=== PATIENT | female | born 1980 | race Native Hawaiian/Other Pacific Islander ===

== ENCOUNTER → 2016-09-12 | Outpatient (CLI) | payer BC ==
--- NOTE | 2016-09-12 15:39 | XR ---
EXAMINATION TYPE: XR cervical spine comp DATE OF EXAM: 09/12/2016 2:40 PM COMPARISON: NONE HISTORY: Cervicalgia TECHNIQUE: 5 view cervical spine FINDINGS: No acute fracture evident. Alignment is normal. Prevertebral space is normal. Posterior spi nal lamellar line is intact. Disc height and vertebral body heights are preserved. Foramen are patent . Prominent C7 transverse processes are present. IMPRESSION: 1. No acute osseous abnormality cervical spine
== END | disposition home or self-care (01) ==
LOC: RADXRMAIN 14:20
PROVIDERS: ATTEND Family Medicine
DX: M54.2 Cervicalgia (principal)
CPT/HCPCS: 72050

== ENCOUNTER → 2016-09-14 | Outpatient (CLI) | payer BC ==
[2016-09-14 11:10] LABS: Prolactin 13.4 ng/mL (3.0-18.6)
== END | disposition home or self-care (01) ==
LOC: LABWHC1 07:54
PROVIDERS: ATTEND Internal Medicine Endocrinology, Diabetes & Metabolism
DX: D35.2 Benign neoplasm of pituitary gland (principal); E03.9 Hypothyroidism, unspecified
CPT/HCPCS: 36415; 84146; 84443

== ENCOUNTER → 2017-08-26 | Outpatient (CLI) | payer BC ==
--- NOTE | 2017-08-26 13:49 | US ---
EXAMINATION TYPE: US pelvis complete transvag DATE OF EXAM: 08/26/2017 COMPARISON: 06/08/2016 CLINICAL HISTORY: 36-year-old female Pelvic R10.2, N92.1 Frequent menstruation. TECHNIQUE: Transvaginal (TV) and Transabdominal (TA) Transvaginal scanning was medically necessary to visualize the left ovary. Date of LMP: 08/02/17 Findings: Uterus: Anteverted measuring 7.4 x 3.7 x 4.8 cm. Numerous cervical nabothian cysts are present. Endometrial Stripe: 1.1 cm, slightly heterogeneous. Right Ovary: 2.6 x 1.4 x 2.9 cm with follicular change. Left Ovary: not visualized on either transabdominal or transvaginal scanning due to adjacent bowel ga s. No evident adnexal abnormality or cul-de-sac free fluid. IMPRESSION: 1. Numerous cervical nabothian cysts incidentally noted. 2. Endometrial stripe measuring 1.1 cm thick should correspond to the secretory phase of the menstrua l cycle. 3. Left ovary could not be visualized by either transabdominal or transvaginal scanning.
== END | disposition home or self-care (01) ==
LOC: RADUSWWP 12:20
PROVIDERS: ATTEND Family Medicine
DX: N88.8 Other specified noninflammatory disorders of cervix uteri (principal); N92.1 Excessive and frequent menstruation with irregular cycle
CPT/HCPCS: 76830; 76856

== ENCOUNTER 2018-07-28 10:12 | Day surgery (SDC) | payer BC ==
[2018-07-25 08:24] VITALS: BMI 28.3
[~2018-07-28 10:12] MED LIST: LACTATED RINGERS 1,000 ML IV SCH
[2018-07-28 10:38] VITALS: TEMP 97.6
[2018-07-28 10:43] LABS: Glucose,Whole Blood 81 mg/dL (75-99)
[2018-07-28] MEDS ORDERED: LIDOCAINE 1% INJ 10MG/ML (20 ML MDV) ONE (12:06)
[2018-07-28] MEDS ORDERED: PROPOFOL 10 MG/ML 20 ML VIAL IV ONE (12:06)
--- NOTE | 2018-07-28 12:30 | P.PCN ---
Date of Procedure: 07/28/18 Procedure(s) Performed: Procedure: Esophagogastroduodenoscopy and biopsy. Preoperative diagnosis: Epigastric pain and dysphagia. Postoperative diagnosis: 1. Small hiatal hernia with no obvious esophagitis or complicated reflux disease. 2. Mild antral gastritis. 3. Biopsies obtained from the duodenum, antrum and esophagus were Preparation and sedation: Was provided by anesthesia. Brief clinical history: The patient is a 37-year-old female who was evaluated last month in the office for complaints of sharp epigastric pain and trouble swallowing. Apparently, this has come and gone over the years. She had hiatal hernia surgery in the past and did feel better for couple years but now her pains has returned. She had the gallbladder removed as well as the past. Her last EGD was around 4 years ago. Procedure: With the patient on her left lateral decubitus position and after informed consent and adequate sedation, I passed the Olympus-GIF H1 90 video upper endoscope through the cricopharyngeus down the esophagus. GE junction was around 31 cm from the incisors and there was a small sliding hiatal hernia with no obvious esophagitis or complicated reflux disease. The endoscope was then passed into the stomach which was insufflated with air and inspected in detail including the retroflex view in the cardia. There was evidence of prior fundoplication. There was also mottling and erythema in the antrum but no ulcers. Pyloric channel did not show any ulcers. Duodenal bulb, post bulbar area and descending duodenum appeared within normal limits. I obtained biopsies from the duodenum, antrum and esophagus then the endoscope was withdrawn. The patient tolerated the procedure well. Plan: The patient was reassured. Will await biopsy results and make further plans based on her course and biopsy results. She will follow-up with you as planned and I will be happy to see in the office if her symptoms persist or recur.
[2018-07-28 12:42] VITALS: BP 121/69; PULSE 69; RESP 16
== END 2018-07-28 13:15 | disposition home or self-care (01) ==
LOC: ORWHC2ENDO 10:12
DX: K29.50 Unspecified chronic gastritis without bleeding (principal); K21.9 Gastro-esophageal reflux disease without esophagitis; K44.9 Diaphragmatic hernia without obstruction or gangrene; R13.10 Dysphagia, unspecified; E07.9 Disorder of thyroid, unspecified; Z79.84 Long term (current) use of oral hypoglycemic drugs; Z79.890 Hormone replacement therapy; Z79.899 Other long term (current) drug therapy; Z91.041 Radiographic dye allergy status
CPT/HCPCS: 88305; 43239; J2001; J2704

== ENCOUNTER → 2018-10-08 | Outpatient (CLI) | payer BC ==
--- NOTE | 2018-10-08 11:23 | US ---
EXAMINATION TYPE: Transabdominal DATE OF EXAM: 10/08/2018 10:56 AM COMPARISON: NONE CLINICAL HISTORY: R10.2 PELVIC AND PERINEAL PAIN. Early OB, fertility issues, A1 EXAM PERFORMED: OBTA, OBTV EXAM MEASUREMENTS: GESTATIONAL AGE / DATING Physician Established: Not yet established Dates by LMP: LMP unknown Dates by First Scan: No previous this is first scan Dates by Current Scan for: No IUP seen at this time MATERNAL ANATOMY Uterus: 9.3 x 6.3 x 5.4cm Right Ovary: 2.3 x 1.9 x 1.7cm Left Ovary: 3.8 x 3.5 x 3.1cm Post CDS / Adnexa: wnl Presence of free fluid: no Presence of corpus luteal cyst: possible on the left = 3.1c, Presence of subchorionic bleed: no GESTATION / SURVEY IUP: No IUP seen at this time Endometrium = 2.7cm , thickened with an irregular, mixed lesion, noted centrally, measuring 1.1cm, u nsure if abnormal gestational sac versus other etiology Date of LMP: unknown Beta HcG (if available): not available IMPRESSION: Endometrium is markedly thickened at 2.7 cm appears somewhat irregular with a mixed lesion noted cent rally measuring 1.1 cm. This is of uncertain etiology. Missed , abnormal gestational sac, or normal too early to detect in the differential diagnosis. Ectopic not excluded. R ecommend follow-up serial beta hCG and pelvic ultrasound as clinically warranted.
== END | disposition home or self-care (01) ==
LOC: RADUSWWP 10:19
PROVIDERS: ATTEND Family Medicine
DX: R93.89 Abnormal findings on diagnostic imaging of other specified body structures (principal); R10.2 Pelvic and perineal pain
CPT/HCPCS: 76801; 76817

== ENCOUNTER → 2018-10-15 | Outpatient (CLI) | payer BC ==
--- NOTE | 2018-10-15 14:14 | US ---
EXAMINATION TYPE: Transabdominal DATE OF EXAM: 10/15/2018 1:34 PM COMPARISON: US 10/08/18. CLINICAL HISTORY: Z33.1 state, incidental,R10.2 PELVIC PAIN. Pelvic pain x 1 month. Hx ovar felecia cyst. Patient unsure of LMP. EXAM PERFORMED: Transvaginal (TV) and Transabdominal (TA) EXAM MEASUREMENTS: GESTATIONAL AGE / DATING Physician Established: Not yet established. Dates by LMP: Pt unsure of LMP Dates by First Scan: No IUP seen 10/08/18. MATERNAL ANATOMY Uterus: 9.8 x 7.2 x 5.9 cm. Hypoechoic area seen: 0.6 x 0.7 x 0.5 cm. Right Ovary: 3.4 x 1.8 x 1.4 cm Left Ovary: 3.9 x 2.3 x 2.9 cm Post CDS / Adnexa: wnl Presence of free fluid: No Presence of corpus luteal cyst: left ovary area of mixed echogenicity and peripheral vascularity seen : 3.2 x 1.7 x 2.6 cm. Presence of subchorionic bleed: No evidence. GESTATION / SURVEY CRL: Not seen. MSD: 0.94 cm. Too early to calculate dates. Yolk Sac (normal less than 6mm): 0.19 IUP: No pole seen at this time Date of LMP: Unknown IMPRESSION: Small intramural endometrial fluid collection containing a yolk sac that may represent ea rly intrauterine or anembryonic /blighted ovum. Follow-up pelvic ultrasound in 7-1 0 days is recommended as well as repeat short-term serial serum beta hCG.
== END | disposition home or self-care (01) ==
LOC: RADUSWWP 12:47
PROVIDERS: ATTEND Family Medicine
DX: O99.89 Other specified diseases and conditions complicating pregnancy, childbirth and the puerperium (principal); R10.2 Pelvic and perineal pain; Z3A.00 Weeks of gestation of pregnancy not specified
CPT/HCPCS: 76801; 76817

== ENCOUNTER → 2018-10-28 | Outpatient (CLI) | payer BC ==
--- NOTE | 2018-10-28 14:22 | US ---
EXAMINATION TYPE: Transabdominal DATE OF EXAM: 10/28/2018 2:00 PM COMPARISON: US 2018 CLINICAL HISTORY: Z33.1 stated, incidental. Pelvic pain EXAM PERFORMED: Transabdominal (TA) EXAM MEASUREMENTS: GESTATIONAL AGE / DATING Physician Established: Not established yet Dates by LMP: Patient unsure Dates by First Scan: No IUP seen on 1st scan Dates by Current Scan for: (7 weeks/1 days) EDC: 06/15/2019 MATERNAL ANATOMY Uterus: 10.4 x 6.5 x 8.0cm, anteverted Right Ovary: 2.8 x 1.4 x 1.8cm Left Ovary: 4.0 x 2.1 x 2.8cm Post CDS / Adnexa: wnl Presence of free fluid: no Presence of corpus luteal cyst: left ovary: 2.4 x 1.6 x 1.9cm Presence of subchorionic bleed: no GESTATION / SURVEY CRL: 10.3cm (7 weeks/1 days) Yolk Sac (normal less than 6mm): 4.3mm Heart Rate: 149 bpm Rhythm: Normal IUP: Viable IUP Date of LMP: Patient unsure Beta HcG (if available): Not available at time of exam IMPRESSION: Viable single IUP measuring 7 weeks 1 day with a heart rate of 149bpm and estimated delivery date of 06/15/2019.
== END | disposition home or self-care (01) ==
LOC: RADUSWWP 13:35
PROVIDERS: ATTEND Family Medicine
DX: Z34.91 Encounter for supervision of normal pregnancy, unspecified, first trimester (principal); Z3A.01 Less than 8 weeks gestation of pregnancy
CPT/HCPCS: 76801

== ENCOUNTER 2019-11-01 18:57 | Emergency (ER) | payer BC, OTHER ==
[2019-11-01] MEDS ORDERED: MORPHINE SULFATE 4 MG/ML SYRINGE IVP STA (19:33)
--- NOTE | 2019-11-01 19:38 | ED ---
General Adult HPI - General Source: patient, family, RN notes reviewed Mode of arrival: ambulatory Limitations: language barrier <Josesito Anna - Last Filed: 11/02/19 00:26> <Susannah Cleaning - Last Filed: 11/02/19 03:16> - General Chief complaint: Abdominal Pain Stated complaint: Fever, headache, nausea Time Seen by Provider: 11/01/19 19:07 - History of Present Illness Initial comments: 39-year-old female with a past medical history of GERD, migraines, thyroid disorder presents to the emergency department for several complaints. Patient has her translating for her. Patient states about a week ago has started to have right flank pain radiating to the right abdomen with associated dysuria. States that she thinks she could've a urinary tract infection. Patient has had these before. Patient developed a fever last night according to the and she had a 102 fever today. She has not received any Tylenol or Motrin today. Patient is also complaining of headache associated with this. She denies cough or congestion. Denies sore throat. Patient has no other complaints at this time including shortness of breath, chest pain, headache, or visual changes. (Josesito Anna) - Related Data Home Medications Medication Instructions Recorded Confirmed Levothyroxine Sodium [Synthroid] 75 mcg PO DAILY 07/10/18 07/25/18 Topiramate [Topiramate ER] 50 mg PO DAILY 07/10/18 07/25/18 metFORMIN HCL [Glucophage] 500 mg PO DAILY 07/10/18 07/25/18 Previous Rx's Medication Instructions Recorded Nitrofurantoin Monohyd/M-Cryst 100 mg PO Q12HR #14 cap 10/04/18 [Macrobid] Sulfamethox-Tmp 800-160Mg [Bactrim 1 tab PO Q12HR #28 tab 11/02/19 DS 800-160 mg] Allergies Allergy/AdvReac Type Severity Reaction Status Date / Time gadobenate dimeglumine Allergy Rash/Hives Verified 11/01/19 18:58 [From Multihance] Review of Systems ROS Other: All systems not noted in ROS Statement are negative. <Josesito Anna - Last Filed: 11/02/19 00:26> ROS Other: All systems not noted in ROS Statement are negative. <Susannah Cleaning Angelica - Last Filed: 11/02/19 03:16> ROS Statement: Those systems with pertinent positive or pertinent negative responses have been documented in the HPI. Past Medical History Past Medical History: GERD/Reflux, Thyroid Disorder Additional Past Medical History / Comment(s): takes metformin for PCOS, not diabetes, hx of migraines History of Any Multi-Drug Resistant Organisms: ESBL Date of last positivie culture/infection: 10/14/17 MDRO Source:: ESBL URINE Past Surgical History: Cholecystectomy, Hernia Repair Past Anesthesia/Blood Transfusion Reactions: Postoperative Nausea & Vomiting (PONV) Past Psychological History: No Psychological Hx Reported Smoking Status: Never smoker Past Alcohol Use History: None Reported Past Drug Use History: None Reported - Past Family History Mother Family Medical History: No Reported History <Josesito Anna - Last Filed: 11/02/19 00:26> General Exam Limitations: language barrier General appearance: alert, in no apparent distress Head exam: Present: atraumatic, normocephalic, normal inspection Eye exam: Present: normal appearance, PERRL, EOMI. Absent: scleral icterus, conjunctival injection, periorbital swelling ENT exam: Present: normal exam, mucous membranes moist Neck exam: Present: normal inspection, full ROM. Absent: tenderness, me ningismus, lymphadenopathy Respiratory exam: Present: normal lung sounds bilaterally. Absent: respiratory distress, wheezes, rales, rhonchi, stridor Cardiovascular Exam: Present: regular rate, normal rhythm, normal heart sounds. Absent: systolic murmur, diastolic murmur, rubs, gallop, clicks GI/Abdominal exam: Present: soft, tenderness (RLQ tenderness), normal bowel sounds. Absent: distended, guarding, rebound, rigid Back exam: Present: CVA tenderness (R). Absent: CVA tenderness (L) Neurological exam: Present: alert <Josesito Anna P - Last Filed: 11/02/19 00:26> Course <Josesito Anna - Last Filed: 11/02/19 00:26> Vital Signs 11/01/19 11/01/19 11/01/19 19:00 20:37 22:11 Temperature 98.4 F 98.8 F 100.4 F H Pulse Rate 99 88 96 Respiratory 18 20 19 Rate Blood Pressure 115/71 102/69 106/80 O2 Sat by Pulse 98 100 96 Oximetry 11/01/19 11/02/19 23:23 00:35 Temperature 98.6 F 98.1 F Pulse Rate 86 71 Respiratory 16 18 Rate Blood Pressure 103/72 103/74 O2 Sat by Pulse 97 96 Oximetry - Reevaluation(s) Reevaluation #1: 11/01/19 22:17 Patient was reevaluated after CAT scan results and is still having considerable abdominal pain although it has improved. She was given Tylenol another dose of pain medication. I did recommend pelvic exam but states that she was unable to tolerate this last time she was supposed to have one and he refuses to have this done again. Patient also refuses through his translation. I did order a pelvic ultrasound given 4 cm cyst on the left ovary. (Josesito Anna) Medical Decision Making - Lab Data Result diagrams: 11/01/19 19:42 11/01/19 19:42 <Josesito Anna - Last Filed: 11/02/19 00:26> - Lab Data Result diagrams: 11/01/19 19:42 11/01/19 19:42 <Susannah Cleaning - Last Filed: 11/02/19 03:16> - Medical Decision Making Vitals are stable upon arrival. Patient is afebrile. She'll exam does reveal some right lower quadrant tenderness with right CVA tenderness. CBC does show a leukocytosis with a left shift. CMP generally unremarkable. Urinalysis does show many bacteria with 7 white blood cells and small leukocyte esterase. Coronavirus negative. Chest x-ray shows no acute. CT abdomen and pelvis was obtained. There was a normal appendix however there is a 4.0 cm left ovarian cyst. Given patient's pain ultrasound was performed today for torsion. There is no evidence of torsion. There is a large cyst on the ovary that could become too beating to patient's pain. Patient was given analgesics. She did have some moderate improvement in pain. I discussed with the patient and may have a pyelonephritis given clinical symptoms and many bacteria. She was given Rocephin. I reviewed patient's previous urine cultures and she does have history of ESBL urine with sensitivity to Bactrim in the past. I also discussed inpatient versus outpatient management with patient and . They prefer to be discharged home and to follow-up with primary care. However they are agreeable to returning here if she has any worsening symptoms. (Josesito Anna) I was available for consultation in the emergency department. The history and physical exam were done by the midlevel provider. I was consulted for this patients care. I reviewed the case with the midlevel provider and based on their presentation of the patient, I agree with the assessment, medical decision making and plan of care as documented. Chart was dictated using [employer] dictation software. Attempts were made to correct any dictation errors however some typographical errors may persist. Patient was seen [facility] the [facility] due to the covid-19 pandemic. (Susannah Cleaning) - Lab Data Lab Results 11/01/19 11/01/19 11/01/19 Range/Units 19:14 19:42 19:42 WBC 15.8 H (3.8-10.6) k/uL RBC 5.20 (3.80-5.40) m/uL Hgb 16.2 H (11.4-16.0) gm/dL Hct 48.4 H (34.0-46.0) % MCV 93.0 (80.0-100.0) fL MCH 31.2 (25.0-35.0) pg MCHC 33.5 (31.0-37.0) g/dL RDW 13.1 (11.5-15.5) % Plt Count 201 (150-450) k/uL Neutrophils % 82 % Lymphocytes % 10 % Monocytes % 5 % Eosinophils % 1 % Basophils % 0 % Neutrophils # 12.9 H (1.3-7.7) k/uL Lymphocytes # 1.5 (1.0-4.8) k/uL Monocytes # 0.8 (0-1.0) k/uL Eosinophils # 0.2 (0-0.7) k/uL Basophils # 0.1 (0-0.2) k/uL Sodium (137-145) mmol/L Potassium (3.5-5.1) mmol/L Chloride (98-107) mmol/L Carbon Dioxide (22-30) mmol/L Anion Gap mmol/L BUN (7-17) mg/dL Creatinine (0.52-1.04) mg/dL Est GFR (CKD-EPI)AfAm (>60 ml/min/1.73 sqM) Est GFR (CKD-EPI)NonAf (>60 ml/min/1.73 sqM) Glucose (74-99) mg/dL Plasma Lactic Acid Saman (0.7-2.0) mmol/L Calcium (8.4-10.2) mg/dL Total Bilirubin (0.2-1.3) mg/dL AST (14-36) U/L ALT (4-34) U/L Alkaline Phosphatase (38-126) U/L Total Protein (6.3-8.2) g/dL Albumin (3.5-5.0) g/dL Amylase (30-110) U/L Lipase (23-300) U/L Urine Color Light Yellow Urine Appearance Clear (Clear) Urine pH 6.0 (5.0-8.0) Ur Specific [place] 1.004 (1.001-1.035) Urine Protein Negative (Negative) Urine Glucose (UA) Negative (Negative) Urine Ketones Negative (Negative) Urine Blood Moderate H (Negative) Urine Nitrite Negative (Negative) Urine Bilirubin Negative (Negative) Urine Urobilinogen <2.0 (<2.0) mg/dL Ur Leukocyte Esterase Small H (Negative) Urine RBC 2 (0-5) /hpf Urine WBC 7 H (0-5) /hpf Ur Squamous Epith Cells 4 (0-4) /hpf Amorphous Sediment Rare H (None) /hpf Urine Bacteria Many H (None) /hpf Urine HCG, Qual Not Detected (Not Detectd) Coronavirus (PCR) (Not Detectd) 11/01/19 11/01/19 11/01/19 Range/Units 19:42 19:42 19:42 WBC (3.8-10.6) k/uL RBC (3.80-5.40) m/uL Hgb (11.4-16.0) gm/dL Hct (34.0-46.0) % MCV (80.0-100.0) fL MCH (25.0-35.0) pg MCHC (31.0-37.0) g/dL RDW (11.5-15.5) % Plt Count (150-450) k/uL Neutrophils % % Lymphocytes % % Monocytes % % Eosinophils % % Basophils % % Neutrophils # (1.3-7.7) k/uL Lymphocytes # (1.0-4.8) k/uL Monocytes # (0-1.0) k/uL Eosinophils # (0-0.7) k/uL Basophils # (0-0.2) k/uL Sodium 134 L (137-145) mmol/L Potassium 3.9 (3.5-5.1) mmol/L Chloride 104 (98-107) mmol/L Carbon Dioxide 21 L (22-30) mmol/L Anion Gap 9 mmol/L BUN 8 (7-17) mg/dL Creatinine 0.48 L (0.52-1.04) mg/dL Est GFR (CKD-EPI)AfAm >90 (>60 ml/min/1.73 sqM) Est GFR (CKD-EPI)NonAf >90 (>60 ml/min/1.73 sqM) Glucose 148 H (74-99) mg/dL Plasma Lactic Acid Saman 2.0 (0.7-2.0) mmol/L Calcium 9.4 (8.4-10.2) mg/dL Total Bilirubin 0.6 (0.2-1.3) mg/dL AST 39 H (14-36) U/L ALT 53 H (4-34) U/L Alkaline Phosphatase 81 (38-126) U/L Total Protein 7.4 (6.3-8.2) g/dL Albumin 4.2 (3.5-5.0) g/dL Amylase 33 (30-110) U/L Lipase 24 (23-300) U/L Urine Color Urine Appearance (Clear) Urine pH (5.0-8.0) Ur Specific [place] (1.001-1.035) Urine Protein (Negative) Urine Glucose (UA) (Negative) Urine Ketones (Negative) Urine Blood (Negative) Urine Nitrite (Negative) Urine Bilirubin (Negative) Urine Urobilinogen (<2.0) mg/dL Ur Leukocyte Esterase (Negative) Urine RBC (0-5) /hpf Urine WBC (0-5) /hpf Ur Squamous Epith Cells (0-4) /hpf Amorphous Sediment (None) /hpf Urine Bacteria (None) /hpf Urine HCG, Qual (Not Detectd) Coronavirus (PCR) Not Detected (Not Detectd) Disposition Is patient prescribed a controlled substance at d/c from ED?: No Time of Disposition: 00:24 <Shoshana,Josesito P - Last Filed: 11/02/19 00:26> <Susannah Cleaning - Last Filed: 11/02/19 03:16> Clinical Impression: Pyelonephritis, Ovarian cyst Disposition: HOME SELF-CARE Condition: Good Instructions (If sedation given, give patient instructions): Kidney Infection (ED) Additional Instructions: Please take Tylenol 3 for pain. Take Bactrim for urinary tract infection. Follow-up with primary care in 1-2 days. Return to the emergency department if you have any worsening symptoms. Prescriptions: Sulfamethox-Tmp 800-160Mg [Bactrim DS 800-160 mg] 1 tab PO Q12HR #28 tab Referrals: Nila Moyer DO [Primary Care Provider] - 1-2 days
[2019-11-01 20:05] LABS: Basophils # (A) 0.1 k/uL (0-0.2); Basophils % (A) 0 %; Eosinophils # (A) 0.2 k/uL (0-0.7); Eosinophils % (A) 1 %; HCT 48.4 % (34.0-46.0); HGB 16.2 gm/dL (11.4-16.0); Lymphocytes # (A) 1.5 k/uL (1.0-4.8); Lymphocytes % (A) 10 %; MCH 31.2 pg (25.0-35.0); MCHC 33.5 g/dL (31.0-37.0); Mean Platelet Volume 7.3; Monocytes # (A) 0.8 k/uL (0-1.0); Monocytes % (A) 5 %; Neutrophils # (A) 12.9 k/uL (1.3-7.7); Neutrophils % (A) 82 %; Platelet Count 201 k/uL (150-450); RDW 13.1 % (11.5-15.5); WBC 15.8 k/uL (3.8-10.6)
[2019-11-01 20:12] LABS: Amorphous Sediment,Urine Rare /hpf; Appearance,Urine Clear (Clear); Bacteria,Urine Many /hpf; Bilirubin,Urine Negative (Negative); Blood,Urine Moderate (Negative); Color,Urine Light Yellow; Glucose,Urine (UA) Negative (Negative); Ketones,Urine Negative (Negative); Leukocyte Esterase,Urine Small (Negative); Nitrite,Urine Negative (Negative); Protein,Urine Negative (Negative); RBC,Urine 2 /hpf (0-5); Specific Gravity,Urine 1.004 (1.001-1.035); Squamous Epithelial Cell,Urine 4 /hpf (0-4); Urobilinogen,Urine <2.0 mg/dL (<2.0); WBC,Urine 7 /hpf (0-5)
[2019-11-01 20:18] LABS: ALT 53 U/L (4-34); AST 39 U/L (14-36); African American GFR (CKD) >90 (>60 ml/min/1.73 sqM); Albumin 4.2 g/dL (3.5-5.0); Alkaline Phosphatase 81 U/L (38-126); Amylase 33 U/L (30-110); Anion Gap 9 mmol/L; Blood Urea Nitrogen 8 mg/dL (7-17); Calcium 9.4 mg/dL (8.4-10.2); Carbon Dioxide 21 mmol/L (22-30); Chloride 104 mmol/L (98-107); Glucose 148 mg/dL (74-99); Non-African American GFR(CKD) >90 (>60 ml/min/1.73 sqM); Potassium 3.9 mmol/L (3.5-5.1); Sodium 134 mmol/L (137-145); Total Bilirubin 0.6 mg/dL (0.2-1.3); Total Protein 7.4 g/dL (6.3-8.2)
--- NOTE | 2019-11-01 20:40 | XR ---
EXAMINATION TYPE: XR chest 1V portable DATE OF EXAM: 11/01/2019 COMPARISON: None INDICATION: Cough headache fever TECHNIQUE: Single frontal view of the chest is obtained. FINDINGS: The heart size is normal. The pulmonary vasculature is normal. The lungs are clear. No suspicious mild infiltrates are evident. IMPRESSION: 1. No acute pulmonary process.
[2019-11-01] MEDS ORDERED: HYDROmorphone 0.5 MG/0.5 ML SYRINGE IVP STA ×2 (21:32→22:13)
--- NOTE | 2019-11-01 21:45 | CT ---
EXAMINATION TYPE: CT abdomen pelvis w con DATE OF EXAM: 11/01/2019 COMPARISON: None INDICATION: RLQ pain, nausea, fever. DLP: 1031.7 mGycm, Automated exposure control for dose reduction was used. CONTRAST: 100 mL of Isovue 300. Study performed without Oral Contrast TECHNIQUE: Axial images were obtained from above the diaphragm to the pubic rami in the axial plane a t 5 mm thick sections. Reconstructed images are reviewed on the computer in the coronal plane. FINDINGS: Limited CT sections are obtained the lung bases. The lung bases are clear. CT ABDOMEN: Liver: Normal Spleen: Normal Pancreas: Normal Adrenal glands: The adrenal glands are normal. Gallbladder: Surgically absent Kidneys: No masses are evident. No hydronephrosis is present. No cysts are present. Delayed images were obtained through the kidneys, which remain unremarkable. Aorta: Normal Inferior vena cava: Normal. CT PELVIS: Loops of bowel within the abdomen and pelvis are normal. There are loops of bowel which are incom pletely distended or lack oral contrast limiting their evaluation. Appendix: Normal as visualized. No dilated tubular structure inflammatory changes are evident. Urinary bladder: Normal. Genitourinary structures: Uterus is normal. There is a 4.0 cm left ovarian cyst measuring 18 Hounsfie ld units. Right adnexa is normal. No free fluid is within the pelvis. Osseous structures: No suspicious lytic or sclerotic lesions. IMPRESSIONS: 1. 4.0 cm left ovarian cyst. 2. Normal appendix
[2019-11-01] MEDS ORDERED: ACETAMINOPHEN TAB 500 MG TAB PO STA (22:13)
--- NOTE | 2019-11-01 23:52 | US ---
EXAMINATION TYPE: US transvaginal DATE OF EXAM: 11/01/2019 COMPARISON: NONE CLINICAL HISTORY: ovarian cyst. left ovarian cyst TECHNIQUE: Transvaginal (TV). Date of LMP: 10/15/19 EXAM MEASUREMENTS: Uterus: 10.1 x 4.7 x 5.0 cm Endometrial Stripe: 1.7 cm Right Ovary: 3.1 x 1.6 x 1.7 cm Left Ovary: 4.3 x 3.2 x 3.9 cm 1. Uterus: Anteverted Nabothian cysts 2. Endometrium: appears thickened 3. Right Ovary: appears wnl, difficult to Doppler due to location - posterior to uterus 4. Left Ovary: cystic area = 3.6 x 3.0 x 2.9cm Spectral, color and waveform doppler imaging shows good arterial and venous flow within the ovaries ; there is no evidence for ovarian torsion. 5. Bilateral Adnexa: appears wnl 6. Posterior cul-de-sac: wnl IMPRESSION: Normal endometrium. Multiple cervical cysts. Dominant cyst on the left ovary measures 3.6 x 3 cm. No evidence of ovarian torsion.
[2019-11-02] MEDS ORDERED: cefTRIAXone IN SWFI 1,000 MG/10 ML SYRINGE IVP STA (00:11)
[2019-11-02] MEDS ORDERED: SULFAMETH-TMP DS STARTER PACK 2 TAB BTL PO STA (00:25)
[2019-11-02] MEDS ORDERED: ACET/COD 300 MG/30 MG STARTER PACK 6 TAB BTL PO STA (00:25)
[2019-11-02 00:36] VITALS: BP 103/74; PULSE 71; RESP 18; TEMP 98.1
== END 2019-11-02 00:51 | disposition home or self-care (01) ==
LOC: EC 18:57
DX: N12 Tubulo-interstitial nephritis, not specified as acute or chronic (principal); N83.202 Unspecified ovarian cyst, left side; E07.9 Disorder of thyroid, unspecified; Z79.890 Hormone replacement therapy; Z79.84 Long term (current) use of oral hypoglycemic drugs; Z79.899 Other long term (current) drug therapy; Z88.8 Allergy status to other drugs, medicaments and biological substances; Z90.49 Acquired absence of other specified parts of digestive tract
CPT/HCPCS: 36415 ×2; 80053; 82150; 83605; 83690; 85025; 81001; 81025; 87040; 87086; 87635; 71045; 93975; 76830; 74177; 99284; 96374; 96375 ×2; 96376; J2270; J0696; J1170; Q9967

== ENCOUNTER 2019-11-08 19:45 | Inpatient (IN) | payer BC, OTHER ==
[2019-11-08] MEDS ORDERED: SODIUM CHLORIDE 0.9% 500 ML 500 ML IV STA (20:04)
[2019-11-08] MEDS ORDERED: KETOROLAC 30 MG/ML 1 ML VIAL IVP STA (20:04)
[2019-11-08] MEDS ORDERED: ONDANSETRON 4 MG/2 ML VIAL IVP STA (20:04)
--- NOTE | 2019-11-08 20:13 | ED ---
General Adult HPI - General Chief complaint: Abdominal Pain Stated complaint: Abd pain Time Seen by Provider: 11/08/19 19:50 Source: patient, family, RN notes reviewed, old records reviewed Mode of arrival: ambulatory Limitations: no limitations - History of Present Illness Initial comments: This is a 39-year-old female presents emergency Department with a three-week history of right CVA tenderness which radiates around the front. Patient has terrible Tajik and her is speaking for the most part. He was in the emergency department at 31 of October she she got a CAT scan and an ultrasound did show a left-sided 4 cm ovarian cyst but she did not complain of pain on the left side. There was no torsion. CT did not find any findings at that time that explained her pain. Patient states the pain initially bad she does vomit. Patient denies any diarrhea. Patient states last time she was here she had a fever she does not have a fever currently. Patient denies any chest pain difficulty breathing shortness of breath. - Related Data Home Medications Medication Instructions Recorded Confirmed Levothyroxine Sodium [Synthroid] 75 mcg PO DAILY 07/10/18 07/25/18 Topiramate [Topiramate ER] 50 mg PO DAILY 07/10/18 07/25/18 metFORMIN HCL [Glucophage] 500 mg PO DAILY 07/10/18 07/25/18 Previous Rx's Medication Instructions Recorded Nitrofurantoin Monohyd/M-Cryst 100 mg PO Q12HR #14 cap 10/04/18 [Macrobid] Sulfamethox-Tmp 800-160Mg [Bactrim 1 tab PO Q12HR #28 tab 11/02/19 DS 800-160 mg] Allergies Allergy/AdvReac Type Severity Reaction Status Date / Time gadobenate dimeglumine Allergy Rash/Hives Verified 11/01/19 18:58 [From [facility]] Review of Systems ROS Statement: Those systems with pertinent positive or pertinent negative responses have been documented in the HPI. ROS Other: All systems not noted in ROS Statement are negative. Past Medical History Past Medical History: GERD/Reflux, Thyroid Disorder Additional Past Medical History / Comment(s): takes metformin for PCOS, not diabetes, hx of migraines History of Any Multi-Drug Resistant Organisms: ESBL Date of last positivie culture/infection: 10/14/17 MDRO Source:: ESBL URINE Past Surgical History: Cholecystectomy, Hernia Repair Past Anesthesia/Blood Transfusion Reactions: Postoperative Nausea & Vomiting (PONV) Past Psychological History: No Psychological Hx Reported Smoking Status: Never smoker Past Alcohol Use History: None Reported Past Drug Use History: None Reported - Past Family History Mother Family Medical History: No Reported History General Exam - General Exam Comments Initial Comments: GENERAL: Patient is well-developed and well-nourished. Patient is nontoxic and well- hydrated and is in mild distress. ENT: Neck is soft and supple. No significant lymphadenopathy is noted. Oropharynx is clear. Moist mucous membranes. Neck has full range of motion without eliciting any pain. EYES: The sclera were anicteric and conjunctiva were pink and moist. Extraocular movements were intact and pupils were equal round and reactive to light. Ey elids were unremarkable. PULMONARY: Unlabored respirations. Good breath sounds bilaterally. No audible rales rhonchi or wheezing was noted. CARDIOVASCULAR: There is a regular rate and rhythm without any murmurs gallops or rubs. ABDOMEN Soft and nontender with normal bowel sounds. SKIN: Skin is clear with no lesions or rashes and otherwise unremarkable. NEUROLOGIC: Patient is alert and oriented x3. Cranial nerves II through XII are grossly intact. Motor and sensory are also intact. Normal speech, volume and content. Symmetrical smile. MUSCULOSKELETAL: Normal extremities with adequate strength and full range of motion. Patient has mild right-sided CVA tenderness LYMPHATICS: No significant lymphadenopathy is noted PSYCHIATRIC: Normal psychiatric evaluation. Limitations: no limitations Course Vital Signs 11/08/19 19:47 Temperature 97.4 F L Pulse Rate 73 Respiratory 18 Rate Blood Pressure 135/82 O2 Sat by Pulse 100 Oximetry Medical Decision Making - Medical Decision Making I will back into room to reevaluate the patient she still is having CVA tenderness on the right and a little bit of right upper quadrant tenderness at this point time. I spoke with Dr. Stanford he agreed to admit the patient admitted the patient I consulted Dr. Noland I did start the patient 2 g of Rocephin. - Lab Data Result diagrams: 11/08/19 20:09 11/08/19 20:09 Lab Results 11/08/19 11/08/19 11/08/19 Range/Units 20:09 20:09 20:09 WBC 14.5 H (3.8-10.6) k/uL RBC 5.02 (3.80-5.40) m/uL Hgb 15.9 (11.4-16.0) gm/dL Hct 48.0 H (34.0-46.0) % MCV 95.5 (80.0-100.0) fL MCH 31.7 (25.0-35.0) pg MCHC 33.2 (31.0-37.0) g/dL RDW 12.8 (11.5-15.5) % Plt Count 459 H D (150-450) k/uL Neutrophils % 77 % Lymphocytes % 15 % Monocytes % 5 % Eosinophils % 1 % Basophils % 0 % Neutrophils # 11.2 H (1.3-7.7) k/uL Lymphocytes # 2.2 (1.0-4.8) k/uL Monocytes # 0.7 (0-1.0) k/uL Eosinophils # 0.2 (0-0.7) k/uL Basophils # 0.0 (0-0.2) k/uL Sodium 137 (137-145) mmol/L Potassium 4.6 (3.5-5.1) mmol/L Chloride 103 (98-107) mmol/L Carbon Dioxide 26 (22-30) mmol/L Anion Gap 8 mmol/L BUN 16 (7-17) mg/dL Creatinine 1.00 (0.52-1.04) mg/dL Est GFR (CKD-EPI)AfAm 83 (>60 ml/min/1.73 sqM) Est GFR (CKD-EPI)NonAf 72 (>60 ml/min/1.73 sqM) Glucose 96 (74-99) mg/dL Plasma Lactic Acid Saman 1.3 (0.7-2.0) mmol/L Calcium 9.9 (8.4-10.2) mg/dL Total Bilirubin 0.3 (0.2-1.3) mg/dL AST 25 (14-36) U/L ALT 71 H (4-34) U/L Alkaline Phosphatase 95 (38-126) U/L Total Protein 7.5 (6.3-8.2) g/dL Albumin 4.3 (3.5-5.0) g/dL Amylase 81 (30-110) U/L Lipase 241 (23-300) U/L Urine Color Urine Appearance (Clear) Urine pH (5.0-8.0) Ur Specific Cocoa (1.001-1.035) Urine Protein (Negative) Urine Glucose (UA) (Negative) Urine Ketones (Negative) Urine Blood (Negative) Urine Nitrite (Negative) Urine Bilirubin (Negative) Urine Urobilinogen (<2.0) mg/dL Ur Leukocyte Esterase (Negative) Urine RBC (0-5) /hpf Urine WBC (0-5) /hpf Ur Squamous Epith Cells (0-4) /hpf 11/08/19 Range/Units 20:15 WBC (3.8-10.6) k/uL RBC (3.80-5.40) m/uL Hgb (11.4-16.0) gm/dL Hct (34.0-46.0) % MCV (80.0-100.0) fL MCH (25.0-35.0) pg MCHC (31.0-37.0) g/dL RDW (11.5-15.5) % Plt Count (150-450) k/uL Neutrophils % % Lymphocytes % % Monocytes % % Eosinophils % % Basophils % % Neutrophils # (1.3-7.7) k/uL Lymphocytes # (1.0-4.8) k/uL Monocytes # (0-1.0) k/uL Eosinophils # (0-0.7) k/uL Basophils # (0-0.2) k/uL Sodium (137-145) mmol/L Potassium (3.5-5.1) mmol/L Chloride (98-107) mmol/L Carbon Dioxide (22-30) mmol/L Anion Gap mmol/L BUN (7-17) mg/dL Creatinine (0.52-1.04) mg/dL Est GFR (CKD-EPI)AfAm (>60 ml/min/1.73 sqM) Est GFR (CKD-EPI)NonAf (>60 ml/min/1.73 sqM) Glucose (74-99) mg/dL Plasma Lactic Acid Saman (0.7-2.0) mmol/L Calcium (8.4-10.2) mg/dL Total Bilirubin (0.2-1.3) mg/dL AST (14-36) U/L ALT (4-34) U/L Alkaline Phosphatase (38-126) U/L Total Protein (6.3-8.2) g/dL Albumin (3.5-5.0) g/dL Amylase (30-110) U/L Lipase (23-300) U/L Urine Color Colorless Urine Appearance Clear (Clear) Urine pH 6.5 (5.0-8.0) Ur Specific Cocoa 1.003 (1.001-1.035) Urine Protein Negative (Negative) Urine Glucose (UA) Negative (Negative) Urine Ketones Negative (Negative) Urine Blood Trace H (Negative) Urine Nitrite Negative (Negative) Urine Bilirubin Negative (Negative) Urine Urobilinogen <2.0 (<2.0) mg/dL Ur Leukocyte Esterase Negative (Negative) Urine RBC 1 (0-5) /hpf Urine WBC <1 (0-5) /hpf Ur Squamous Epith Cells 1 (0-4) /hpf Disposition Clinical Impression: Abdominal pain, Back pain Disposition: ADMITTED IP TO THIS HOSP Referrals: Nila Moyer DO [Primary Care Provider] - 1-2 days Time of Disposition: 22:17
[2019-11-08 20:20] LABS: Basophils % (A) 0 %; Eosinophils # (A) 0.2 k/uL (0-0.7); Eosinophils % (A) 1 %; HGB 15.9 gm/dL (11.4-16.0); Lymphocytes # (A) 2.2 k/uL (1.0-4.8); Lymphocytes % (A) 15 %; MCH 31.7 pg (25.0-35.0); MCHC 33.2 g/dL (31.0-37.0); MCV 95.5 fL (80.0-100.0); Mean Platelet Volume 6.7; Monocytes # (A) 0.7 k/uL (0-1.0); Monocytes % (A) 5 %; Neutrophils # (A) 11.2 k/uL (1.3-7.7); Neutrophils % (A) 77 %; RBC 5.02 m/uL (3.80-5.40); RDW 12.8 % (11.5-15.5); WBC 14.5 k/uL (3.8-10.6)
[2019-11-08 20:22] LABS: Platelet Count 459 k/uL (150-450)
[2019-11-08 20:30] LABS: Albumin 4.3 g/dL (3.5-5.0); Calcium 9.9 mg/dL (8.4-10.2); Potassium 4.6 mmol/L (3.5-5.1); Total Bilirubin 0.3 mg/dL (0.2-1.3); Total Protein 7.5 g/dL (6.3-8.2)
[2019-11-08 20:34] LABS: Appearance,Urine Clear (Clear); Bilirubin,Urine Negative (Negative); Blood,Urine Trace (Negative); Color,Urine Colorless; Glucose,Urine (UA) Negative (Negative); Ketones,Urine Negative (Negative); Leukocyte Esterase,Urine Negative (Negative); Nitrite,Urine Negative (Negative); PH, Urine 6.5 (5.0-8.0); Protein,Urine Negative (Negative); RBC,Urine 1 /hpf (0-5); Specific Gravity,Urine 1.003 (1.001-1.035); Squamous Epithelial Cell,Urine 1 /hpf (0-4); Urobilinogen,Urine <2.0 mg/dL (<2.0); WBC,Urine <1 /hpf (0-5)
[2019-11-08] MEDS ORDERED: SODIUM CHLORIDE 0.9% 1,000 ML IV ONE (22:18)
[2019-11-09] MEDS: MORPHINE SULFATE 2 MG/ML SYRINGE IVP PRN ×2 (00:14→20:35)
[2019-11-09] MEDS ORDERED: ONDANSETRON 4 MG/2 ML VIAL IVP PRN (02:23)
[2019-11-09] MEDS: KETOROLAC 30 MG/ML 1 ML VIAL IVP PRN ×3 (02:32→16:51)
--- NOTE | 2019-11-09 10:37 | P.GSCN ---
<Ny Redmond - Last Filed: 11/09/19 10:32> History of Present Illness Consult date: 11/09/19 Reason for Consult: abdominal pain Requesting physician: Robert Dsouza History of present illness: CHIEF COMPLAINT: CVA tenderness, abdominal pain HISTORY OF PRESENT ILLNESS: 39-year-old female who presented to the emergency room with chief complaint of right flank pain. Patient states she has been experiencing this pain for a few weeks. She reports having a fever on and off for the last week. She was evaluated in the emergency room on 11/01/2019. Patient had a computed tomography scan performed at that time revealing a 4 cm left ovarian cyst. She was also diagnosed with a urinary tract infection and discharged home on Bactrim. Urine culture performed at that time was positive for E. coli and was susceptible to Bactrim. Patients pain is mostly in the right flank region. She does complain of some mid right sided abdominal pain and a little discomfort on the mid left side of her abdomen. She is passing flatus. She reports having a bowel movement 2 days ago which she states is her normal bowel pattern. She reports having nausea and vomiting on Saturday. Patient continues to complain of urinary complaints including dysuria, increased frequency, urgency, and occasional incontinence if she cannot get to the bathroom in time. PAST MEDICAL HISTORY: See list. PAST SURGICAL HISTORY: See list. SOCIAL HISTORY: No illicit drug use. REVIEW OF SYSTEMS: CONSTITUTIONAL: Reports fever. HEENT: Denies blurred vision, vision changes, or eye pain. Denies hemoptysis CARDIOVASCULAR: Denies chest pain or pressure. RESPIRATORY: No shortness of breath. GASTROINTESTINAL: Refer to HPI for pertinent findings HEMATOLOGIC: Denies bleeding disorders. GENITOURINARY: See HPI for pertinent findings SKIN: Denies pruitis. Denies rash. PHYSICAL EXAM: VITAL SIGNS: Reviewed. GENERAL: Well-developed in no acute distress. HEENT: No sclera icterus. Extraocular movements grossly intact. Moist buccal mucosa. Head is atraumatic, normocephalic. ABDOMEN: Soft. Nondistended. Right CVA tenderness. Mild mid left and right tenderness with palpation. NEUROLOGIC: Alert and oriented. Cranial nerves II through XII grossly intact. LABORATORY DATA: WBC 14.5. Hemoglobin 15.9. Platelet count 459. Urinalysis reveals trace blood, otherwise unremarkable IMAGING: CT abdomen and pelvis completed on 11/01/2019 revealed 4 cm left ovarian cyst ASSESSMENT: 1. Right flank pain, fever, nausea 2. Dysuria, increased frequency, urgency, and occasional incontinence with a recent diagnosis of UTI, culture positive for Ecoli 3. History of cholecystectomy PLAN: Begin clear liquid diet No surgical intervention recommended She may benefit from urology/nephrology consult for further workup Nurse practitioner note has been reviewed by physician. Signing provider agrees with the documented findings, assessment, and plan of care. Past Medical History Past Medical History: GERD/Reflux, Thyroid Disorder Additional Past Medical History / Comment(s): PCOS. migraines History of Any Multi-Drug Resistant Organisms: ESBL Year Discovered:: 10/14/17 MDRO Source:: ESBL URINE Past Surgical History: Cholecystectomy, Hernia Repair Additional Past Surgical History / Comment(s): c section. josé around 18 years ago Past Anesthesia/Blood Transfusion Reactions: Postoperative Nausea & Vomiting (PONV) Past Psychological History: No Psychological Hx Reported Smoking Status: Never smoker Past Alcohol Use History: None Reported Past Drug Use History: None Reported - Past Family History Mother Family Medical History: No Reported History Medications and Allergies Home Medications Medication Instructions Recorded Confirmed Type Levothyroxine Sodium [Synthroid] 75 mcg PO DAILY 07/10/18 11/09/19 History Citalopram Hydrobromide [CeleXA] 20 mg PO DAILY 11/09/19 11/09/19 History Ibuprofen [Advil] 200 mg PO Q8HR PRN 11/09/19 11/09/19 History Allergies Allergy/AdvReac Type Severity Reaction Status Date / Time gadobenate dimeglumine Allergy Rash/Hives Verified 11/09/19 08:19 [facility] Surgical - Exam Vital Signs Temp Pulse Resp BP Pulse Ox 97.4 F L 73 18 135/82 100 11/08/19 19:47 11/08/19 19:47 11/08/19 19:47 11/08/19 19:47 11/08/19 19:47 Results - Labs 11/08/19 20:09 11/08/19 20:09 Abnormal Lab Results - Last 24 Hours (Table) 11/08/19 11/08/19 11/08/19 Range/Units 20:09 20:09 20:15 WBC 14.5 H (3.8-10.6) k/uL Hct 48.0 H (34.0-46.0) % Plt Count 459 H D (150-450) k/uL Neutrophils # 11.2 H (1.3-7.7) k/uL ALT 71 H (4-34) U/L Urine Blood Trace H (Negative) Diabetes panel 11/08/19 Range/Units 20:09 Sodium 137 (137-145) mmol/L Potassium 4.6 (3.5-5.1) mmol/L Chloride 103 (98-107) mmol/L Carbon Dioxide 26 (22-30) mmol/L BUN 16 (7-17) mg/dL Creatinine 1.00 (0.52-1.04) mg/dL Glucose 96 (74-99) mg/dL Calcium 9.9 (8.4-10.2) mg/dL AST 25 (14-36) U/L ALT 71 H (4-34) U/L Alkaline Phosphatase 95 (38-126) U/L Total Protein 7.5 (6.3-8.2) g/dL Albumin 4.3 (3.5-5.0) g/dL Calcium panel 11/08/19 Range/Units 20:09 Calcium 9.9 (8.4-10.2) mg/dL Albumin 4.3 (3.5-5.0) g/dL Pituitary panel 11/08/19 Range/Units 20:09 Sodium 137 (137-145) mmol/L Potassium 4.6 (3.5-5.1) mmol/L Chloride 103 (98-107) mmol/L Carbon Dioxide 26 (22-30) mmol/L BUN 16 (7-17) mg/dL Creatinine 1.00 (0.52-1.04) mg/dL Glucose 96 (74-99) mg/dL Calcium 9.9 (8.4-10.2) mg/dL Adrenal panel 11/08/19 Range/Units 20:09 Sodium 137 (137-145) mmol/L Potassium 4.6 (3.5-5.1) mmol/L Chloride 103 (98-107) mmol/L Carbon Dioxide 26 (22-30) mmol/L BUN 16 (7-17) mg/dL Creatinine 1.00 (0.52-1.04) mg/dL Glucose 96 (74-99) mg/dL Calcium 9.9 (8.4-10.2) mg/dL Total Bilirubin 0.3 (0.2-1.3) mg/dL AST 25 (14-36) U/L ALT 71 H (4-34) U/L Alkaline Phosphatase 95 (38-126) U/L Total Protein 7.5 (6.3-8.2) g/dL Albumin 4.3 (3.5-5.0) g/dL <Thai Noland - Last Filed: 11/09/19 13:03> History of Present Illness History of present illness: As above. Patient still having right-sided pain. Suspect pyelonephritis last visit. Unsure why the patient is still having symptoms at this time. We'll review repeat CAT scan once is obtained. Continue antibiotics for now. Surgical - Exam Vital Signs Temp Pulse Resp BP Pulse Ox 97.4 F L 73 18 135/82 100 11/08/19 19:47 11/08/19 19:47 11/08/19 19:47 11/08/19 19:47 11/08/19 19:47 Results - Labs 11/08/19 20:09 11/08/19 20:09 Abnormal Lab Results - Last 24 Hours (Table) 11/08/19 11/08/19 11/08/19 Range/Units 20:09 20:09 20:15 WBC 14.5 H (3.8-10.6) k/uL Hct 48.0 H (34.0-46.0) % Plt Count 459 H D (150-450) k/uL Neutrophils # 11.2 H (1.3-7.7) k/uL ALT 71 H (4-34) U/L Urine Blood Trace H (Negative) Diabetes panel 11/08/19 Range/Units 20:09 Sodium 137 (137-145) mmol/L Potassium 4.6 (3.5-5.1) mmol/L Chloride 103 (98-107) mmol/L Carbon Dioxide 26 (22-30) mmol/L BUN 16 (7-17) mg/dL Creatinine 1.00 (0.52-1.04) mg/dL Glucose 96 (74-99) mg/dL Calcium 9.9 (8.4-10.2) mg/dL AST 25 (14-36) U/L ALT 71 H (4-34) U/L Alkaline Phosphatase 95 (38-126) U/L Total Protein 7.5 (6.3-8.2) g/dL Albumin 4.3 (3.5-5.0) g/dL Calcium panel 11/08/19 Range/Units 20:09 Calcium 9.9 (8.4-10.2) mg/dL Albumin 4.3 (3.5-5.0) g/dL Pituitary panel 11/08/19 Range/Units 20:09 Sodium 137 (137-145) mmol/L Potassium 4.6 (3.5-5.1) mmol/L Chloride 103 (98-107) mmol/L Carbon Dioxide 26 (22-30) mmol/L BUN 16 (7-17) mg/dL Creatinine 1.00 (0.52-1.04) mg/dL Glucose 96 (74-99) mg/dL Calcium 9.9 (8.4-10.2) mg/dL Adrenal panel 11/08/19 Range/Units 20:09 Sodium 137 (137-145) mmol/L Potassium 4.6 (3.5-5.1) mmol/L Chloride 103 (98-107) mmol/L Carbon Dioxide 26 (22-30) mmol/L BUN 16 (7-17) mg/dL Creatinine 1.00 (0.52-1.04) mg/dL Glucose 96 (74-99) mg/dL Calcium 9.9 (8.4-10.2) mg/dL Total Bilirubin 0.3 (0.2-1.3) mg/dL AST 25 (14-36) U/L ALT 71 H (4-34) U/L Alkaline Phosphatase 95 (38-126) U/L Total Protein 7.5 (6.3-8.2) g/dL Albumin 4.3 (3.5-5.0) g/dL
--- NOTE | 2019-11-09 12:03 | P.HPIM ---
History of Present Illness 39-year-old pleasant female came in with complains of right flank pain radiating to right midabdominal area. Sharp pain 8/10 in severity. Patient was seen in ER on with similar complaints computed tomography scan was opted at that time computed tomography scan was negative and patient was given Bactrim urine at that time was positive for E. coli on cultures which is sensitive to Bactrim patient has been on Bactrim still can use to complain of complaints of dysuria urine analysis although is negative for any infection except for mild hematuria as patient is partially treated with Bactrim I do not expect urine cultures to be positive patient will be started on Rocephin patient was also complaining of nausea vomiting 1 episode on Saturday. She does have leukocytosis without any fever. Patient's pain is constant and not related to food but patient one time throughout after eating. Patient doesn't have any significant CVA tenderness patient had a normal bowel movement couple days ago patient was having the dysuria and increased urinary frequency Review of Systems REVIEW OF SYSTEMS: CONSTITUTIONAL: No fever, no malaise, no fatigue. HEENT: No recent visual problems or hearing problems. Denied any sore throat. CARDIOVASCULAR: No chest pain, orthopnea, PND, no palpitations, no syncope. PULMONARY: No shortness of breath, no cough, no hemoptysis. GASTROINTESTINAL: No diarrhea. NEUROLOGICAL: No headaches, no weakness, no numbness. HEMATOLOGICAL: Denies any bleeding or petechiae. GENITOURINARY: As mentioned in HPI MUSCULOSKELETAL/RHEUMATOLOGICAL: Denies any joint pain, swelling, or any muscle pain. ENDOCRINE: Denies any polyuria or polydipsia. The rest of the 14-point review of systems is negative. Past Medical History Past Medical History: GERD/Reflux, Thyroid Disorder Additional Past Medical History / Comment(s): PCOS. migraines History of Any Multi-Drug Resistant Organisms: ESBL Date of last positivie culture/infection: 10/14/17 MDRO Source:: ESBL URINE Past Surgical History: Cholecystectomy, Hernia Repair Additional Past Surgical History / Comment(s): c section. josé around 18 years ago Past Anesthesia/Blood Transfusion Reactions: Postoperative Nausea & Vomiting (PONV) Past Psychological History: No Psychological Hx Reported Smoking Status: Never smoker Past Alcohol Use History: None Reported Past Drug Use History: None Reported - Past Family History Mother Family Medical History: No Reported History Medications and Allergies Home Medications Medication Instructions Recorded Confirmed Type Levothyroxine Sodium [Synthroid] 75 mcg PO DAILY 07/10/18 11/09/19 History Citalopram Hydrobromide [CeleXA] 20 mg PO DAILY 11/09/19 11/09/19 History Ibuprofen [Advil] 200 mg PO Q8HR PRN 11/09/19 11/09/19 History Allergies Allergy/AdvReac Type Severity Reaction Status Date / Time gadobenate dimeglumine Allergy Rash/Hives Verified 11/09/19 08:19 [From [facility]] Physical Exam Vitals: Vital Signs Temp Pulse Pulse Pulse Resp BP BP 11/09/19 09:40 97.9 F 58 L 16 105/69 11/09/19 08:19 97.5 F L 60 16 102/61 11/09/19 08:00 58 L 64 16 11/09/19 00:38 98.4 F 64 18 130/82 11/08/19 23:40 60 16 110/69 11/08/19 19:47 97.4 F L 73 18 135/82 Pulse Ox 11/09/19 09:40 99 11/09/19 08:19 96 11/09/19 08:00 11/09/19 00:38 100 11/08/19 23:40 99 11/08/19 19:47 100 Intake and Output 11/08/19 11/09/19 11/09/19 22:59 06:59 14:59 Intake Total 550 Balance 550 Intake: Intake, IV Titration 550 Amount Sodium Chloride 0.9% 500 500 ml 500 ml @ 999 mls/hr IV .Q31M STA Rx#:[id number] cefTRIAXone 2 gm In 50 Sodium Chloride 0.9% 50 ml @ 100 mls/hr IVPB ONCE ONE Rx#:[id number] Oral 0 Other: # Voids 4 4 Weight 63.503 kg 66.5 kg PHYSICAL EXAMINATION: GENERAL: The patient is alert and oriented x3, not in any acute distress. Well developed, well nourished. HEENT: Pupils are round and equally reacting to light. EOMI. No scleral icterus. No conjunctival pallor. Normocephalic, atraumatic. No pharyngeal erythema. No thyromegaly. CARDIOVASCULAR: S1 and S2 present. No murmurs, rubs, or gallops. PULMONARY: Chest is clear to auscultation, no wheezing or crackles. ABDOMEN: Soft, tenderness in the right flank area but no CVA tenderness, nondistended, normoactive bowel sounds. No palpable organomegaly. MUSCULOSKELETAL: No joint swelling or deformity. EXTREMITIES: No cyanosis, clubbing, or pedal edema. NEUROLOGICAL: Gross neurological examination did not reveal any focal deficits. SKIN: No rashes. Results CBC & Chem 7: 11/08/19 20:09 11/08/19 20:09 Labs: Abnormal Lab Results - Last 24 Hours (Table) 11/08/19 11/08/19 11/08/19 Range/Units 20: 20:09 20:15 WBC 14.5 H (3.8-10.6) k/uL Hct 48.0 H (34.0-46.0) % Plt Count 459 H D (150-450) k/uL Neutrophils # 11.2 H (1.3-7.7) k/uL ALT 71 H (4-34) U/L Urine Blood Trace H (Negative) Thrombosis Risk Factor Assmnt - Choose All That Apply Each Factor Represents 1 point: Obesity (BMI >25) Thrombosis Risk Factor Assessment Total Risk Factor Score: 1 Thrombosis Risk Factor Assessment Level: Low Risk Assessment and Plan Plan: -Abdominal pain: Probably secondary to pyelonephritis which cannot be completely ruled out will obtain a CAT scan of the abdomen and pelvis again to see there is any enhancement of the renal pelvis. Patient's he is negative as patient was partially treated with Bactrim I do not expect and cultures to be positive the patient had E. coli in the past patient will be started on Rocephin will see if there is any symptomatic improvement on that patient will be given Toradol for pain and nausea and vomiting is probably secondary to urinary tract infection neurosurgery will evaluate the patient, will monitor the area for any clinical improvement there is clinical improvement patient will be discharged on Ceftin for total course of antibiotic being 7 days. -Leukocytosis probably secondary to urinary tract infection as mentioned above -Gastric esophageal reflux disease patient was started on Protonix -Hypothyroidism patient is not on any medications for this this can be evaluated as an outpatient patient has history of PCO S and migraines in the past
[2019-11-09] MEDS: IOPAMIDOL CONTRAST (ORAL USE) VIAL PO PRN ×2 (12:13→13:05)
--- NOTE | 2019-11-09 14:25 | CT ---
EXAMINATION TYPE: CT abdomen pelvis w con DATE OF EXAM: 11/09/2019 COMPARISON: 11/01/2019 HISTORY: Pylenephritis CT DLP: 906.6 mGycm CONTRAST: CT scan of the abdomen and pelvis is performed with Oral Contrast and with IV Contrast, patient injec mateo with 100 ml mL of Isovue 300. FINDINGS: LUNG BASES-: No visible nodule. No infiltrate. LIVER/GB: The gallbladder is surgically absent. No space occupying hepatic lesion. Biliary tree is of normal caliber. PANCREAS: No inflammation. No distinct mass. SPLEEN: No splenic enlargement. No lesion seen. ADRENALS: No nodule. No thickening. KIDNEYS/BLADDER: Mild right-sided hydronephrosis noted secondary to a 3.3 mm right UVJ calculus. Hete rogenous enhancement pattern on the delayed images suggest possible right-sided pyelonephritis. Left kidney is free of nephrolithiasis or hilar nephritis. No hydronephrosis seen in the left kidney. BOWEL: Normal appendix. Normal bowel caliber. No inflammation. GENITAL ORGANS: Left ovarian cyst measuring 4.3 cm is stable. LYMPH NODES: No greater than 1cm abdominal or pelvic lymph nodes are appreciated. AORTA: No significant abnormality. OSSEOUS STRUCTURES: No significant abnormality is seen. OTHER: No significant additional abnormality is seen. IMPRESSION: 1. Mild right-sided hydronephrosis noted secondary to a 3.3 mm right UVJ calculus. 2. Heterogenous enhancement pattern on the delayed images suggests possible right-sided pyelonephrit is.
[2019-11-09] MEDS: PANTOPRAZOLE 40 MG/10 ML VIAL IVP SCH (15:08)
[2019-11-09] MEDS: TAMSULOSIN 0.4 MG CAP.ER.24H PO SCH (20:35)
[2019-11-09] MEDS: FAMOTIDINE 20 MG TAB PO SCH (20:35)
[2019-11-10 03:40] VITALS: RESP 17; TEMP 98
[2019-11-10] MEDS: SODIUM CHLORIDE 0.9% 1,000 ML IV SCH ×2 (07:10→07:30)
[2019-11-10] MEDS: KETOROLAC 30 MG/ML 1 ML VIAL IVP PRN ×2 (07:29→12:10)
[2019-11-10] MEDS: TAMSULOSIN 0.4 MG CAP.ER.24H PO SCH (07:29)
[2019-11-10] MEDS: FAMOTIDINE 20 MG TAB PO SCH (07:29)
[2019-11-10] MEDS: PANTOPRAZOLE 40 MG/10 ML VIAL IVP SCH (07:30)
[2019-11-10 08:23] VITALS: BP 97/60; PULSE 60
--- NOTE | 2019-11-10 09:41 | P.PN ---
<Ny Redmond Angelica - Last Filed: 11/10/19 09:37> Subjective Progress Note Date: 11/10/19 CHIEF COMPLAINT: CVA tenderness, abdominal pain HISTORY OF PRESENT ILLNESS: patient examined this morning at bedside. She underwent computed tomography scan yesterday revealing mild right-sided hydronephrosis secondary to 3.3 mm right UVJ calculus and right-sided pyelonephritis. Patient reports improvement in pain this morning. She denies nausea or vomiting. vital signs are stable. She is afebrile. PHYSICAL EXAM: VITAL SIGNS: Reviewed. GENERAL: Well-developed in no acute distress. HEENT: No sclera icterus. Extraocular movements grossly intact. Moist buccal mucosa. Head is atraumatic, normocephalic. ABDOMEN: Soft. Nondistended. Mild right CVA tenderness. NEUROLOGIC: Alert and oriented. Cranial nerves II through XII grossly intact. ASSESSMENT: 1. Right-sided hydronephrosis secondary to 3.3 mm right UVJ calculus and right-sided pyelonephritis 2. Recent diagnosis of UTI, culture positive for Ecoli 3. History of cholecystectomy PLAN: Advance diet Await urology consultation No surgical intervention recommended We will sign off. Please reconsult if needed Nurse practitioner note has been reviewed by physician. Signing provider agrees with the documented findings, assessment, and plan of care. Objective - Vital Signs Vital signs: Vital Signs Temp 98.0 F 11/10/19 07:00 Pulse 60 11/10/19 07:00 Resp 17 11/10/19 07:00 BP 97/60 11/10/19 07:00 Pulse Ox 98 11/10/19 07:00 Intake & Output 11/09/19 11/10/19 11/10/19 18:59 06:59 18:59 Intake Total 200 Balance 200 Intake: Intake, IV Titration 200 Amount Sodium Chloride 0.9% 1, 200 000 ml @ 100 mls/hr IV . Q10H [facility] Rx#:[id number] Other: # Voids 1 1 - Labs CBC & Chem 7: 11/08/19 20:09 11/08/19 20:09 <Thai Noland - Last Filed: 11/10/19 11:13> Subjective As above. Patient's CAT scan does confirm a distal ureteral stone. We'll sign off. Await urology recommendations. Objective - Vital Signs Vital signs: Vital Signs Temp 98.0 F 11/10/19 07:00 Pulse 60 11/10/19 07:00 Resp 17 11/10/19 07:00 BP 97/60 11/10/19 07:00 Pulse Ox 98 11/10/19 07:00 Intake & Output 11/09/19 11/10/19 11/10/19 18:59 06:59 18:59 Intake Total 200 400 Balance 200 400 Intake: Intake, IV Titration 200 Amount Sodium Chloride 0.9% 1, 200 000 ml @ 100 mls/hr IV . Q10H [facility] Rx#:[id number] Oral 400 Other: # Voids 1 1 - Labs CBC & Chem 7: 11/08/19 20:09 11/08/19 20:09
--- NOTE | 2019-11-10 12:48 | P.DS ---
Providers Date of admission: 11/10/19 09:11 Attending physician: Dayanna Stanford Consults: 11/08/19 22:18 Consult Physician Urgent Consulting Provider: Thai Noland Consult Reason/Comments: Abdominal pain and CVA tenderness Do you want consulting provider notified?: Yes 11/09/19 18:55 Consult Physician Routine Consulting Provider: Rashad Barrios Consult Reason/Comments: Right ureteral stone Do you want consulting provider notified?: Yes, Notify in am Primary care physician: Nila [facility] Hospital Course: 39-year-old pleasant female came in with complains of right flank pain radiating to right midabdominal area. Sharp pain 8/10 in severity. Patient was seen in ER on with similar complaints computed tomography scan was opted at that time computed tomography scan was negative and patient was given Bactrim urine at that time was positive for E. coli on cultures which is sensitive to Bactrim patient has been on Bactrim still can use to complain of complaints of dysuria urine analysis although is negative for any infection except for mild hematuria as patient is partially treated with Bactrim I do not expect urine cultures to be positive patient will be started on Rocephin patient was also complaining of nausea vomiting 1 episode on Saturday. She does have leukocytosis without any fever. Patient's pain is constant and not related to food but patient one time throughout after eating. Patient doesn't have any significant CVA tenderness patient had a normal bowel movement couple days ago patient was having the dysuria and increased urinary frequency 11/10/2019 Patient's obesity scan is positive for of hydronephrosis on the right side with a 3.3 mm stone on the right side. Patient pain has improved she may have passed a stone. Patient will be referred to urology and will be discharged today. Patient will be discharged on Ceftin, for 4 more days completing total antibiotic therapy of 5 days on cephalosporins. PHYSICAL EXAMINATION: GENERAL: The patient is alert and oriented x3, not in any acute distress. Well developed, well nourished. HEENT: Pupils are round and equally reacting to light. EOMI. No scleral icterus. No conjunctival pallor. Normocephalic, atraumatic. No pharyngeal erythema. No thyromegaly. CARDIOVASCULAR: S1 and S2 present. No murmurs, rubs, or gallops. PULMONARY: Chest is clear to auscultation, no wheezing or crackles. ABDOMEN: Soft, nontender, nondistended, normoactive bowel sounds. No palpable organomegaly. MUSCULOSKELETAL: No joint swelling or deformity. EXTREMITIES: No cyanosis, clubbing, or pedal edema. NEUROLOGICAL: Gross neurological examination did not reveal any focal deficits. SKIN: No rashes. -nephrolithiasis with pyelonephritis and and UTI secondary to renal calculipatient had E. coli which is sensitive to most antibiotics -hypothyroidism Plan - Discharge Summary Discharge Rx Participant: Yes New Discharge Prescriptions: New Cefuroxime Axetil [Ceftin] 500 mg PO BID 4 Days #8 tab Discontinued Sulfamethox-Tmp 800-160Mg [Bactrim DS 800-160 mg] 1 tab PO Q12HR #28 tab No Action Levothyroxine Sodium [Synthroid] 75 mcg PO DAILY Citalopram Hydrobromide [CeleXA] 20 mg PO DAILY Ibuprofen [Advil] 200 mg PO Q8HR PRN PRN Reason: Pain Discharge Medication List Levothyroxine Sodium [Synthroid] 75 mcg PO DAILY 07/10/18 [History] Citalopram Hydrobromide [CeleXA] 20 mg PO DAILY 11/09/19 [History] Ibuprofen [Advil] 200 mg PO Q8HR PRN 11/09/19 [History] Cefuroxime Axetil [Ceftin] 500 mg PO BID 4 Days #8 tab 11/10/19 [Rx] Follow up Appointment(s)/Referral(s): Nila Moyer DO [Primary Care Provider] - 11/13/19 9:40 am (Please call office to set up video confrence and carrier. This appointment will be a video conference) Rashad Barrios MD [STAFF PHYSICIAN] - 11/17/19 8:20 am Patient Instructions/Handouts: Kidney Stones (DC), How to Strain Your Urine (ED)
--- NOTE | 2019-11-10 13:14 | CDI ---
Documentation Clarification Form Date: 11/10/2019 12:51:18 PM From: Jessica San RN, CCDS Admit Date: 11/10/2019 09:11:00 AM Patient Name: Mary Tubbs Visit Number: [id number] Discharge Date: ATTENTION: The Clinical Documentation Specialists (CDI) and [facility] Coding Staff appreciate your assistance in clarifying documentation. Please respond to the clarification below the line at the bottom and electronically sign. The CDI & [facility] Coding staff will review the response and follow-up if needed. Please note: Queries are made part of the Legal Health Record. If you have any questions, please contact the author of this message via ITS. Dr. Phuong Alarcon The patient presented with right flank pain radiating to right midabdominal area. On 10/10 H&P has pyelonephritis and acuity of the pyelonephritis is requested. History/Risk Factors: GERD, Thyroid Disorder Clinical Indicators: 39 year-old female present to ED on 11/07 with complaints of abdominal pain. 11/08 Abdomen/Pelvis Ct: Mild right-sided hydronephrosis noted secondary to 3.3 mm right UVJ calculus. Heterogenous enhancement pattern on the delayed images suggests possible right-sided pyelonephritis. 11/07 Lab findings: 14.5, [id number], UA: Ur Leukocyte Esterase negative; COVID-19 Not detected Vital Signs: 135/82 73 18 97.4 100% RA Treatment: Rocephin 2 gm 5/3-55 Toradol 15 mg IVP q 6 hrs prn Zofran 4 mg IVP x1 5/4 .9 Saline 500cc bolus, continue @ 75 mls hr In your professional opinion, can you please clarify acuity of the pyelonephritis? Acute Pyelonephritis Chronic Pyelonephritis Other, please specify Unable to determine (Last Revision: October 2017) Acute Pyelonephritis MTDD
== END 2019-11-10 12:46 | disposition home or self-care (01) | DRG 690 ==
LOC: EC 19:45 → 6PED 22:19 → 4SSUR 11-09 09:33 → OBSVTOIN 11-10 09:11
PROVIDERS: ADMIT Hospitalist; ATTEND Hospitalist
DX: N13.6 Pyonephrosis (principal); B96.20 Unspecified Escherichia coli [E. coli] as the cause of diseases classified elsewhere; E03.9 Hypothyroidism, unspecified; R31.9 Hematuria, unspecified; K21.9 Gastro-esophageal reflux disease without esophagitis; E28.2 Polycystic ovarian syndrome; N83.202 Unspecified ovarian cyst, left side; E66.9 Obesity, unspecified; Z68.28 Body mass index [BMI] 28.0-28.9, adult; Z11.59 Encounter for screening for other viral diseases; Z79.84 Long term (current) use of oral hypoglycemic drugs; Z79.890 Hormone replacement therapy; Z79.899 Other long term (current) drug therapy; Z90.49 Acquired absence of other specified parts of digestive tract; Z86.19 Personal history of other infectious and parasitic diseases; Z98.891 History of uterine scar from previous surgery; Z98.890 Other specified postprocedural states; Z86.69 Personal history of other diseases of the nervous system and sense organs; Z88.8 Allergy status to other drugs, medicaments and biological substances
CPT/HCPCS: 36415; 74177; 80053; 81001; 82150; 83605; 83690; 85025; 87635; 96361; 96365; 96375; 99285

== ENCOUNTER 2021-07-19 15:30 | Emergency (ER) | payer OTHER ==
[2021-07-19 16:00] VITALS: BP 131/91; PULSE 100; RESP 18; TEMP 98.4
[2021-07-19] MEDS ORDERED: SODIUM CHLORIDE 0.9% 1,000 ML IV STA (17:48)
[2021-07-19] MEDS ORDERED: MORPHINE SULFATE 4 MG/ML SYRINGE IV STA (17:48)
[2021-07-19] MEDS ORDERED: ONDANSETRON 4 MG/2 ML VIAL IVP STA (17:48)
--- NOTE | 2021-07-19 17:57 | ED ---
Abdominal Pain HPI - General Source: patient, family, RN notes reviewed Mode of arrival: wheelchair Limitations: no limitations <Winston Gramajo - Last Filed: 07/19/21 21:54> <Susannah Cleaning - Last Filed: 07/21/21 12:27> - General Chief Complaint: Abdominal Pain Stated Complaint: abd pain Time Seen by Provider: 07/19/21 17:41 - History of Present Illness Initial Comments: This is a pleasant 40-year-old female who presents to emergency department complaining of lower abdominal pain since 5 AM this morning. Pain is been constant, sharp, exacerbated by palpation and movement. Does radiate to the back at times. No chest pain or shortness of breath. Patient was seen by her primary care physician this morning he had an outpatient ultrasound ordered and done which did not show any acute pathology. She denies any amount of vomitus urination. No nausea or vomiting. Last menstrual period was 2 weeks ago. No vaginal bleeding. No vaginal discharge. No fever or chills. Patient is status post cholecystectomy in the past and has a history of ovarian cyst as well (Winston Gramajo) - Related Data Home Medications Medication Instructions Recorded Confirmed Levothyroxine Sodium [Synthroid] 75 mcg PO DAILY 07/10/18 11/09/19 Citalopram Hydrobromide [CeleXA] 20 mg PO DAILY 11/09/19 11/09/19 Ibuprofen [Advil] 200 mg PO Q8HR PRN 11/09/19 11/09/19 Previous Rx's Medication Instructions Recorded Cefuroxime Axetil [Ceftin] 500 mg PO BID 4 Days #8 tab 11/10/19 Doxycycline Monohydrate [Monodox] 100 mg PO Q12HR #28 cap 07/19/21 HYDROcodone/APAP 5-325MG [Cashiers 5] 1 each PO Q6H PRN #12 tab 07/19/21 Naproxen [Naprosyn] 500 mg PO Q12HR #24 tab 07/19/21 Allergies Allergy/AdvReac Type Severity Reaction Status Date / Time gadobenate dimeglumine Allergy Rash/Hives Verified 07/19/21 15:57 [From Multihance] Review of Systems ROS Other: All systems not noted in ROS Statement are negative. <Winston Gramajo - Last Filed: 07/19/21 21:54> ROS Other: All systems not noted in ROS Statement are negative. <Susannah Cleaning - Last Filed: 07/21/21 12:27> ROS Statement: Those systems with pertinent positive or pertinent negative responses have been documented in the HPI. Past Medical History Past Medical History: GERD/Reflux, Thyroid Disorder Additional Past Medical History / Comment(s): PCOS. migraines History of Any Multi-Drug Resistant Organisms: ESBL Date of last positivie culture/infection: 10/14/17 MDRO Source:: ESBL URINE Past Surgical History: Cholecystectomy, Hernia Repair Additional Past Surgical History / Comment(s): c section. josé around 18 years ago Past Anesthesia/Blood Transfusion Reactions: Postoperative Nausea & Vomiting (PONV) Past Psychological History: No Psychological Hx Reported Smoking Status: Never smoker Past Alcohol Use History: None Reported Past Drug Use History: None Reported - Past Family History Mother Family Medical History: No Reported History <AvilaWinston - Last Filed: 07/19/21 21:54> General Exam Limitations: no limitations General appearance: alert, in distress Head exam: Present: atraumatic, normocephalic, normal inspection Eye exam: Present: normal appearance, PERRL, EOMI. Absent: scleral icterus, conjunctival injection, periorbital swelling ENT exam: Present: normal exam, mucous membranes moist Neck exam: Present: normal inspection. Absent: tenderness, meningismus, lymphadenopathy Respiratory exam: Present: normal lung sounds bilaterally. Absent: respiratory distress, wheezes, rales, rhonchi, stridor Cardiovascular Exam: Present: regular rate, normal rhythm, normal heart sounds. Absent: systolic murmur, diastolic murmur, rubs, gallop, clicks GI/Abdominal exam: Present: soft, tenderness, guarding, normal bowel sounds, other (Patient has tenderness in the pelvic area, most notably in the suprapubic and right pelvic area.). Absent: distended, rebound, rigid External exam: Present: normal external exam. Absent: erythema, swelling, lesions, lacerations, ecchymosis Speculum exam: Present: erythema, vaginal discharge, cervical discharge, other (Friable cervix with mild cervical motion tenderness). Absent: foreign body By manual exam: Present: cervical motion tenderness, uterine tenderness. Absent: adnexal tenderness, adnexal mass, uterine enlargement Extremities exam: Present: normal inspection, full ROM, normal capillary refill. Absent: tenderness, pedal edema, joint swelling, calf tenderness Back exam: Present: normal inspection Neurological exam: Present: alert, oriented X3, CN II-XII intact Psychiatric exam: Present: normal affect, normal mood Skin exam: Present: warm, dry, intact, normal color. Absent: rash <Winston Gramajo - Last Filed: 07/19/21 21:54> - General Exam Comments Initial Comments: Patient in moderate distress. Patient does not appear to be ill or toxic. Vital signs stable, patient afebrile. Patient appears to be adequately hydrated. (Winston Gramajo) Course <Winston Gramajo - Last Filed: 07/19/21 21:54> Vital Signs 07/19/21 15:57 Temperature 98.4 F Pulse Rate 100 Respiratory 18 Rate Blood Pressure 131/91 O2 Sat by Pulse 100 Oximetry - Reevaluation(s) Reevaluation #1: 07/19/21 19:21 Patient reevaluated, patient's urinalysis shows evidence of urinary tract infection recent the suspicion of pyelonephritis. White blood cell count is elevated. Blood cultures ordered. Ceftriaxone ordered. (Winston Gramajo) Medical Decision Making - Lab Data Result diagrams: 07/19/21 18:16 07/19/21 18:16 - Radiology Data Radiology results: report reviewed, image reviewed <Winston Gramajo - Last Filed: 07/19/21 21:54> - Lab Data Result diagrams: 07/19/21 18:16 07/19/21 18:16 <Susannah Cleaning - Last Filed: 07/21/21 12:27> - Medical Decision Making Differential diagnosis includes ovarian cyst, ovarian torsion, pelvic inflammatory disease, endometriosis, mittelschmerz. Patient has evidence of cervicitis with cervical discharge and easily friable cervix. Mild cervical motion tenderness. Suspect this may be related to early PID. Discussed this with the patient. Shunt noticed follow-up with her regular physician tomorrow as well as her [facility] physician in [place]. I'm going to treat the patient with doxycycline twice a day for 2 weeks. Pelvic rest until symptoms clear. Short course of Cashiers. Patient no she can return here at any time any symptoms worsen or problems arise. The case was discussed in detail with ED attending physician. Presentation, findings, treatment plan discussed in detail. Patient was told to return to the ER for any signs or symptoms worsen. Told to return immediately if any other problems arise. All questions answered. Treatment plan discussed. Patient in agreement (Winston Gramajo) I was available for consultation in the emergency department. The history and physical exam were done by the midlevel provider. I was consulted for this patients care. I reviewed the case with the midlevel provider and based on their presentation of the patient, I agree with the assessment, medical decision making and plan of care as documented. Chart was dictated using Kamida dictation software. Attempts were made to correct any dictation errors however some typographical errors may persist. Patient was seen during a national community health of emergency due to the Covid-19 pandemic. (Susannah Cleaning) - Lab Data Lab Results 07/19/21 07/19/21 07/19/21 Range/Units 18:16 18:16 18:16 WBC 15.4 H (3.8-10.6) k/uL RBC 5.08 (3.80-5.40) m/uL Hgb 15.8 (11.4-16.0) gm/dL Hct 47.3 H (34.0-46.0) % MCV 93.1 (80.0-100.0) fL MCH 31.1 (25.0-35.0) pg MCHC 33.4 (31.0-37.0) g/dL RDW 12.4 (11.5-15.5) % Plt Count 245 (150-450) k/uL MPV 7.0 Neutrophils % 81 % Lymphocytes % 13 % Monocytes % 3 % Eosinophils % 2 % Basophils % 0 % Neutrophils # 12.5 H (1.3-7.7) k/uL Lymphocytes # 2.1 (1.0-4.8) k/uL Monocytes # 0.5 (0-1.0) k/uL Eosinophils # 0.2 (0-0.7) k/uL Basophils # 0.1 (0-0.2) k/uL Sodium (137-145) mmol/L Potassium (3.5-5.1) mmol/L Chloride (98-107) mmol/L Carbon Dioxide (22-30) mmol/L Anion Gap mmol/L BUN (7-17) mg/dL Creatinine (0.52-1.04) mg/dL Est GFR (CKD-EPI)AfAm (>60 ml/min/1.73 sqM) Est GFR (CKD-EPI)NonAf (>60 ml/min/1.73 sqM) Glucose (74-99) mg/dL Calcium (8.4-10.2) mg/dL Total Bilirubin (0.2-1.3) mg/dL AST (14-36) U/L ALT (4-34) U/L Alkaline Phosphatase (38-126) U/L Total Protein (6.3-8.2) g/dL Albumin (3.5-5.0) g/dL Lipase (23-300) U/L Urine Color Light Yellow Urine Appearance Clear (Clear) Urine pH 7.0 (5.0-8.0) Ur Specific [place] 1.036 H (1.001-1.035) Urine Protein Negative (Negative) Urine Glucose (UA) Negative (Negative) Urine Ketones Negative (Negative) Urine Blood Moderate H (Negative) Urine Nitrite Positive H (Negative) Urine Bilirubin Negative (Negative) Urine Urobilinogen <2.0 (<2.0) mg/dL Ur Leukocyte Esterase Small H (Negative) Urine RBC 2 (0-5) /hpf Urine WBC 7 H (0-5) /hpf Ur Squamous Epith Cells 1 (0-4) /hpf Urine Mucus Rare H (None) /hpf Urine HCG, Qual Not Detected (Not Detectd) 07/19/21 Range/Units 18:16 WBC (3.8-10.6) k/uL RBC (3.80-5.40) m/uL Hgb (11.4-16.0) gm/dL Hct (34.0-46.0) % MCV (80.0-100.0) fL MCH (25.0-35.0) pg MCHC (31.0-37.0) g/dL RDW (11.5-15.5) % Plt Count (150-450) k/uL MPV Neutrophils % % Lymphocytes % % Monocytes % % Eosinophils % % Basophils % % Neutrophils # (1.3-7.7) k/uL Lymphocytes # (1.0-4.8) k/uL Monocytes # (0-1.0) k/uL Eosinophils # (0-0.7) k/uL Basophils # (0-0.2) k/uL Sodium 138 (137-145) mmol/L Potassium 4.2 (3.5-5.1) mmol/L Chloride 105 (98-107) mmol/L Carbon Dioxide 23 (22-30) mmol/L Anion Gap 10 mmol/L BUN 11 (7-17) mg/dL Creatinine 0.54 (0.52-1.04) mg/dL Est GFR (CKD-EPI)AfAm >90 (>60 ml/min/1.73 sqM) Est GFR (CKD-EPI)NonAf >90 (>60 ml/min/1.73 sqM) Glucose 105 H (74-99) mg/dL Calcium 9.5 (8.4-10.2) mg/dL Total Bilirubin 0.7 (0.2-1.3) mg/dL AST 39 H (14-36) U/L ALT 43 H (4-34) U/L Alkaline Phosphatase 91 (38-126) U/L Total Protein 7.5 (6.3-8.2) g/dL Albumin 4.4 (3.5-5.0) g/dL Lipase 36 (23-300) U/L Urine Color Urine Appearance (Clear) Urine pH (5.0-8.0) Ur Specific [place] (1.001-1.035) Urine Protein (Negative) Urine Glucose (UA) (Negative) Urine Ketones (Negative) Urine Blood (Negative) Urine Nitrite (Negative) Urine Bilirubin (Negative) Urine Urobilinogen (<2.0) mg/dL Ur Leukocyte Esterase (Negative) Urine RBC (0-5) /hpf Urine WBC (0-5) /hpf Ur Squamous Epith Cells (0-4) /hpf Urine Mucus (None) /hpf Urine HCG, Qual (Not Detectd) Disposition Is patient prescribed a controlled substance at d/c from ED?: Yes When asked, does pt state using other controlled substances?: No If prescribed controlled substance>3 days was MAPS reviewed?: No Time of Disposition: 22:00 <Winston Gramajo - Last Filed: 07/19/21 21:54> <Susannah Cleaning - Last Filed: 07/21/21 12:27> Clinical Impression: UTI (urinary tract infection), Ovarian cyst, Cervicitis, Vaginal discharge Disposition: HOME SELF-CARE Condition: Stable Instructions (If sedation given, give patient instructions): Cervicitis (ED), Ovarian Cyst (ED), Urinary Tract Infection in Women (ED) Additional Instructions: Follow-up with your regular physician as directed. Return to the ER immediately if any symptoms worsen, new symptoms arise, or any other problems develop. Take antibiotics as directed. Call tomorrow morning to set up a follow-up appointment with your regular physician and your [facility] physician. Pelvic rest/no sexual activity until symptoms have resolved. Prescriptions: Doxycycline Monohydrate [Monodox] 100 mg PO Q12HR #28 cap Naproxen [Naprosyn] 500 mg PO Q12HR #24 tab HYDROcodone/APAP 5-325MG [Cashiers 5] 1 each PO Q6H PRN #12 tab PRN Reason: Pain Referrals: Nila Moyer DO [Primary Care Provider] - 1-2 days
[2021-07-19 18:27] LABS: Basophils # (A) 0.1 k/uL (0-0.2); Basophils % (A) 0 %; Eosinophils # (A) 0.2 k/uL (0-0.7); Eosinophils % (A) 2 %; HCT 47.3 % (34.0-46.0); HGB 15.8 gm/dL (11.4-16.0); Lymphocytes # (A) 2.1 k/uL (1.0-4.8); Lymphocytes % (A) 13 %; MCH 31.1 pg (25.0-35.0); MCHC 33.4 g/dL (31.0-37.0); MCV 93.1 fL (80.0-100.0); Monocytes # (A) 0.5 k/uL (0-1.0); Monocytes % (A) 3 %; Neutrophils # (A) 12.5 k/uL (1.3-7.7); Neutrophils % (A) 81 %; Platelet Count 245 k/uL (150-450); RBC 5.08 m/uL (3.80-5.40); RDW 12.4 % (11.5-15.5); WBC 15.4 k/uL (3.8-10.6)
[2021-07-19 18:35] LABS: ALT 43 U/L (4-34); AST 39 U/L (14-36); African American GFR (CKD) >90 (>60 ml/min/1.73 sqM); Albumin 4.4 g/dL (3.5-5.0); Alkaline Phosphatase 91 U/L (38-126); Anion Gap 10 mmol/L; Blood Urea Nitrogen 11 mg/dL (7-17); Calcium 9.5 mg/dL (8.4-10.2); Carbon Dioxide 23 mmol/L (22-30); Chloride 105 mmol/L (98-107); Glucose 105 mg/dL (74-99); Lipase 36 U/L (23-300); Non-African American GFR(CKD) >90 (>60 ml/min/1.73 sqM); Potassium 4.2 mmol/L (3.5-5.1); Sodium 138 mmol/L (137-145); Total Bilirubin 0.7 mg/dL (0.2-1.3); Total Protein 7.5 g/dL (6.3-8.2)
[2021-07-19 19:12] LABS: Appearance,Urine Clear (Clear); Bilirubin,Urine Negative (Negative); Blood,Urine Moderate (Negative); Color,Urine Light Yellow; Glucose,Urine (UA) Negative (Negative); Ketones,Urine Negative (Negative); Leukocyte Esterase,Urine Small (Negative); Mucus,Urine Rare /hpf; Nitrite,Urine Positive (Negative); Protein,Urine Negative (Negative); RBC,Urine 2 /hpf (0-5); Specific Gravity,Urine 1.036 (1.001-1.035); Squamous Epithelial Cell,Urine 1 /hpf (0-4); Urobilinogen,Urine <2.0 mg/dL (<2.0); WBC,Urine 7 /hpf (0-5)
[2021-07-19] MEDS ORDERED: SODIUM CHLORIDE 0.9% 1,000 ML IV ONE (19:22)
--- NOTE | 2021-07-19 19:42 | US ---
EXAMINATION TYPE: US transvaginal DATE OF EXAM: 07/19/2021 COMPARISON: CT, US CLINICAL HISTORY: Pelvic pain, rule out ovarian torsion. Pelvic pain. Hx C section, miscarriage. G2 P 1. TECHNIQUE: Transvaginal (TV). Limited, pt did try to empty her bladder. Date of LMP: Pt states about 2 weeks ago. EXAM MEASUREMENTS: Uterus: 7.6 x 5.1 x 4.1 cm Endometrial Stripe: 1.12 cm Right Ovary: 2.9 x 1.5 x 1.6 cm Left Ovary: 3.8 x 2.3 x 2.8 cm 1. Uterus: Anteverted. Appears heterogeneous. Anechoic areas seen within cervix and compatible with nabothian cysts. Hypoechoic area anteriorly seen on sagittal images was not defined in transverse. 2. Endometrium: Measures 1.12 cm, pt states LMP was about 2 weeks ago. 3. Right Ovary: Anechoic areas seen, largest: 1.0 x 1.2 x 0.8 cm. 4. Left Ovary: Septated anechoic area seen: 1.8 x 1.3 x 1.3 cm. Spectral, color and waveform doppler imaging shows arterial and venous flow within the ovaries. Di fficult to Doppler right ovary due to position, arterial and venous waveforms appear to be present. 5. Bilateral Adnexa: Appear wnl 6. Posterior cul-de-sac: Appears wnl IMPRESSION: Bilateral ovarian cysts measuring up to 1.8 cm and mildly complex on the left. Otherwise no definite acute abnormality of the pelvic ultrasound.
[2021-07-19] MEDS ORDERED: HYDROcodone/APAP 5-325MG 1 EACH TAB PO STA (20:10)
[2021-07-19] MEDS ORDERED: KETOROLAC 15 MG/ML 1 ML VIAL IVP STA (20:11)
[2021-07-19] MEDS ORDERED: metroNIDAZOLE 500 MG TAB PO STA (21:55)
[2021-07-19] MEDS ORDERED: DOXYCYCLINE 100 MG CAP PO STA (21:55)
[2021-07-21 14:47] LABS: C. trachomatis,PCR Negative (Neg,Equiv); Chlamydia trachomatis Source Cervix; N. gonorrhoeae,PCR Negative (Neg,Equiv); Neisseria Source Cervix
== END 2021-07-19 23:00 | disposition home or self-care (01) ==
LOC: EC 15:30
DX: N39.0 Urinary tract infection, site not specified (principal); N83.291 Other ovarian cyst, right side; N72 Inflammatory disease of cervix uteri; N89.8 Other specified noninflammatory disorders of vagina; K21.9 Gastro-esophageal reflux disease without esophagitis; E07.9 Disorder of thyroid, unspecified; Z90.49 Acquired absence of other specified parts of digestive tract
CPT/HCPCS: 99284; 96365; 96375 ×3; 96361; 36415; 80053; 83690; 85025; 81001; 81025; 87040; 87491; 87591; 93975; 76830; J2270; J2405; J0696; J1885

== ENCOUNTER → 2021-07-19 | Outpatient (CLI) | payer OTHER ==
--- NOTE | 2021-07-19 15:07 | CT ---
EXAMINATION TYPE: CT abdomen pelvis w con DATE OF EXAM: 07/19/2021 HISTORY: RLQ pain CT DLP: 1434mGycm Automated Exposure Control for Dose Reduction was Utilized. CONTRAST: CT scan of the abdomen and pelvis is performed with oral and with IV Contrast, patient injected with 100 mL of Isovue 300. COMPARISON: CT abdomen and pelvis November 09, 2019 FINDINGS: LUNG BASES: No significant abnormality is appreciated. LIVER/GB: Cholecystectomy clips are redemonstrated. PANCREAS: No significant abnormality is seen. SPLEEN: No significant abnormality is seen. ADRENALS: No significant abnormality is seen. KIDNEYS: Symmetric cortical medullary uptake and excretion without hydronephrosis seen bilaterally. BOWEL: Oral contrast reaches level of the cecum. No suspicious small or large bowel dilatation. Norm al-appearing appendix extends inferiorly from the cecum. UTERUS/ADNEXA: Anteverted uterus. Left ovarian 2.4 x 2.0 cm low dense lesion is smaller from prior st udy axial image 66. Right ovary remains normal in size axial image 56 LYMPH NODES: No greater than 1cm abdominal or pelvic lymph nodes are appreciated. OSSEOUS STRUCTURES: No significant abnormality is seen. OTHER: Direct origin of the right common hepatic artery from the aorta which is a normal variant. IMPRESSION: No CT evidence for acute appendicitis. No suspicious new or acute finding identified to a ccount for patient's symptoms of right lower quadrant pain on today's study.
== END | disposition home or self-care (01) ==
LOC: RADCTMAIN 12:50
PROVIDERS: ATTEND Family Medicine
DX: R10.31 Right lower quadrant pain (principal)
CPT/HCPCS: 74177; Q9967

== ENCOUNTER → 2022-05-25 | Outpatient (CLI) | payer OTHER ==
--- NOTE | 2022-05-28 08:33 | MM ---
Reason for Exam: Screening (asymptomatic). Baseline mammogram. Patient History: Menarche at age 12. First Full-Term at age 38. Late child-bearing (after 30). Patient has history of breast feeding. Mother had ovarian cancer, age 37. Last menstrual period: 04/26/2022 Risk Values: Nany 5 year model risk: 0.8%. NCI Lifetime model risk: 14.8%. Prior Study Comparison: Patient's first Mammogram. No prior studies available for comparison. Tissue Density: The breast tissue is heterogeneously dense. This may lower the sensitivity of mammography. Findings: Analyzed By CAD. There is no suspicious group of microcalcifications or new suspicious mass in either breast. Overall Assessment: Negative, BI-RAD 1 Management: Screening Mammogram of both breasts in 1 year. A clinical breast exam by your physician is recommended on an annual basis and results should be correlated with mammographic findings. Electronically signed and approved by: Jeff Colorado M.D. Radiologis
== END | disposition home or self-care (01) ==
LOC: RADMAMWWP 15:35
PROVIDERS: ATTEND Family Medicine
DX: Z12.31 Encounter for screening mammogram for malignant neoplasm of breast (principal); Z80.41 Family history of malignant neoplasm of ovary
CPT/HCPCS: 77063; 77067

== ENCOUNTER → 2023-05-02 | Outpatient (CLI) | payer OTHER ==
--- NOTE | 2023-05-02 17:09 | US ---
EXAMINATION TYPE: US abdomen complete DATE OF EXAM: 05/02/2023 COMPARISON: NONE CLINICAL INDICATION: Female, 42 years old with history of R10.30 LOWER ABDOMINAL PAIN, UNSPECIFIED; f lank pain, cholecystectomy TECHNIQUE: Multiple sonographic images of the abdomen are obtained. FINDINGS: EXAM MEASUREMENTS: Liver Length: 15.5 cm Gallbladder Wall: Surgically absent CBD: 0.4 cm Spleen: 8.8 cm Right Kidney: 9.0 x 4.4 x 4.3 cm Left Kidney: 11.5 x 5.8 x 4.2 cm OVERNIGHT STOCKER NOTES: Technical limitations due to large amount of overlying bowel gas Pancreas: Obscured by bowel gas Liver: limited evaluation. best visualized intercostally. Increased attenuation Gallbladder: Surgically absent Evidence for sonographic Miner's sign: no CBD: visualized segment appears wnl Spleen: granulomas Right Kidney: no evidence of hydronephrosis Left Kidney: no evidence of hydronephrosis Upper IVC: wnl Abd Aorta: wnl The liver is homogenous with increased attenuation. The intrahepatic portion of the IVC and proximal abdominal aorta are within normal limits.. Common bile duct is unremarkable. The visualized portio ns of the pancreas are homogenous. The spleen is unremarkable. Kidneys are symmetric and free of hy dronephrosis. No renal lesions are seen. IMPRESSION: 1. No evidence for obstructive uropathy. 2. Hepatic steatosis.
--- NOTE | 2023-05-02 18:49 | US ---
EXAMINATION TYPE: US pelvic complete DATE OF EXAM: 05/02/2023 COMPARISON: 07/19/2021 CLINICAL INDICATION: Female, 42 years old with history of R10.30 LOWER ABDOMINAL PAIN, UNSPECIFIED; P elvic pain, prior TECHNIQUE: Transabdominal (TA). Date of LMP: 04/12/23 EXAM MEASUREMENTS: Uterus: 10.0 x 4.1 x 5.4 cm Endometrial Stripe: 1.1 cm Right Ovary: 3.4 x 2.7 x 1.5 cm Left Ovary: 2.8 x 2.9 x 1.8 cm 1. Uterus: Anteverted wnl 2. Endometrium: anechoic area = 0.8 x 0.5 x 0.6cm 3. Right Ovary: dominant follicle = 2.0cm 4. Left Ovary: follicles 5. Bilateral Adnexa: wnl 6. Posterior cul-de-sac: wnl IMPRESSION: No acute process. Endometrium is within normal limits for premenopausal patient. Anechoic area within the endometrium could represent blood products.
== END | disposition home or self-care (01) ==
LOC: RADUSWWP 16:13
PROVIDERS: ATTEND Family Medicine
DX: K76.0 Fatty (change of) liver, not elsewhere classified (principal); Z90.49 Acquired absence of other specified parts of digestive tract; Z98.891 History of uterine scar from previous surgery
CPT/HCPCS: 76700; 76856